=== PATIENT | female | born 1985 ===

== ENCOUNTER 2021-01-22 06:53 | Emergency (ER) | payer SELFPAY ==
[~2021-01-22] VITALS: Ht 160 cm; Wt 56.8 kg
[2021-01-22 07:01] VITALS: BP 149/69; Ht 160 cm; Wt 56.8 kg
[2021-01-22 07:21] LABS: BASOPHILS 0.2 % (0-2); HEMATOCRIT 42.4 % (36.0-48.0); HEMOGLOBIN 14.2 g/dL (12-16); IMMATURE GRANULOCYTES 0.2 % (0-5); LYMPHOCYTE ABS# 1.68 10x3/uL (1.18-3.74); MCH 31.1 pg (26.0-34.0); MCHC 33.5 g/dL (31.0-37.0); MEAN PLATELET VOLUME 9.9 fL (7.4-10.4); MONOCYTES 7.3 % (2-11); NEUTROPHIL ABS# 7.37 10x3/uL (1.56-6.13); NEUTROPHILS 70.3 % (40-80); PLATELET COUNT 212 10x3/uL (130-400); RBC 4.56 10x6/uL (4.00-5.40); RDW 14.7 % (11.5-14.5); WBC 10.5 10x3/uL (4.8-10.8)
[2021-01-22 07:27] LABS: CALC OSMOLALITY 281 mosm/kg (275-300); CALCIUM 8.8 mg/dL (8.5-10.1); CHLORIDE - SERUM 107 mmol/L (98-107); CREATININE - SERUM 0.8 mg/dL (0.6-1.3); GLUCOSE 117 mg/dL (74-106); POTASSIUM - SERUM 3.8 mmol/L (3.5-5.1); SODIUM 141 mmol/L (136-145); UREA NITROGEN 12 mg/dL (7-18); eGFR NON AFRICAN AMERICAN 87 mL/min (90-120)
[2021-01-22 07:35] LABS: ALBUMIN 3.4 g/dL (3.4-5.0); ALKALINE PHOSPHATASE 55 U/L (30-120); ALT (SGPT) 34 U/L (10-68); AMYLASE - SERUM 56 U/L (25-115); BILIRUBIN - TOTAL 0.44 mg/dL (0.2-1.3); LIPASE 84 U/L (73-393); PROTEIN - SERUM 6.2 g/dL (6.4-8.2); TROPONIN-I < 0.017 ng/mL (0.000-0.060)
[2021-01-22 08:10] LABS: HCG URINE NEGATIVE (NEGATIVE)
[2021-01-22 08:33] LABS: BILIRUBIN NEGATIVE (NEGATIVE); KETONE SMALL mg/dL (NEGATIVE); NITRITE NEGATIVE (NEGATIVE); UROBILINOGEN NORMAL mg/dL (< 2); WHITE CELLS - URINE OCC HPF (0-4)
[2021-01-22 08:34] LABS: BACTERIA FEW HPF (NONE SEEN); SQUAMOUS EPITHELIAL 0-5 HPF (0-4)
[2021-01-22 09:01] LABS: UDS - AMPHET NEGATIVE QUAL (NEGATIVE); UDS - BARB NEGATIVE QUAL (NEGATIVE); UDS - BENZO NEGATIVE QUAL (NEGATIVE); UDS - COCAINE NEGATIVE QUAL (NEGATIVE); UDS - OPIATE NEGATIVE QUAL (NEGATIVE); UDS - PCP NEGATIVE QUAL (NEGATIVE); UDS - THC POSITIVE QUAL (NEGATIVE)
[2021-01-22] MEDS ORDERED: CIPRO500 MG PO (12:21)
[2021-01-22] MEDS ORDERED: PHENERGAN25 M1 PO (12:21)
[2021-01-22] MEDS ORDERED: FLAGYL500 MG PO (12:21)
== END 2021-01-22 12:41 | disposition home or self-care (01) ==
LOC: D.ER 06:53
PROVIDERS: Family Medicine
DX: K52.9 Noninfective gastroenteritis and colitis, unspecified (principal); E86.0 Dehydration; R11.10 Vomiting, unspecified; R10.12 Left upper quadrant pain